=== PATIENT | female | born 1955 | race Caucasian/White ===

== ENCOUNTER 2018-06-21 16:52 | Inpatient (IN) | payer MEDICAID, OTHER ==
[~2018-06-21] VITALS: Ht 160 cm; Wt 90.9 kg
[2018-06-21 18:35] LABS: BASOPHILS % (AUTO) 0.7 % (0.0-2.0); EOSINOPHILS % (AUTO) 0.4 % (1.0-6.0); HEMATOCRIT 41.5 % (36-46); HEMOGLOBIN 14.7 g/dL (12.0-16.0); LYMPHOCYTES # (AUTO) 2.2 K/uL (1.0-4.8); LYMPHOCYTES % (AUTO) 21.6 % (22.0-44.0); MEAN CORPUSCULAR HEMOGLOBIN 33.6 pg (26.0-34.0); MEAN CORPUSCULAR HGB CONC 35.5 G/dL (31.0-37.0); MEAN CORPUSCULAR VOLUME 95 fL (80-100); MONOCYTES # (AUTO) 0.7 K/uL (0.1-1.0); MONOCYTES % (AUTO) 6.8 % (2.0-9.0); NEUTROPHILS # (AUTO) 7.2 K/uL (1.8-7.7); NEUTROPHILS % (AUTO) 70.5 % (40.0-70.0); PLATELET COUNT (AUTO) 222 K/uL (150-450); RED BLOOD CELL COUNT(AUTO) 4.38 MIL/uL (4.00-5.20); RED CELL DISTRIBUTION WIDTH 13.2 % (11.5-14.5)
[2018-06-21 18:50] LABS: ALANINE AMINOTRANSFERASE 43 U/L (12-78); ALBUMIN 3.7 g/dL (3.4-5.0); ALKALINE PHOSPHATASE 82 U/L (46-116); ANION GAP 13 mmol/L (8-16); ASPARTATE AMINOTRANSFERASE 33 U/L (15-37); BILIRUBIN,TOTAL 0.4 mg/dL (0.1-1.0); CALCIUM, TOTAL 9.5 mg/dL (8.8-10.5); CARBON DIOXIDE 23 mmol/L (22-29); CHLORIDE 104 mmol/L (98-107); CREATININE 0.79 mg/dL (0.60-1.30); GLOMERULAR FILTR. RATE CALC > 60 mL/min (>60); GLUCOSE,RANDOM 145 mg/dL (70-110); SODIUM SERUM 140 mmol/L (136-145); TOTAL PROTEIN, SERUM 7.5 g/dL (6.4-8.2); UREA NITROGEN, BLOOD 15 mg/dL (7-18)
[2018-06-21 18:51] LABS: POTASSIUM 2.6 mmol/L (3.5-5.1)
[2018-06-21] MEDS ORDERED: POTASSIUM CHLORIDE 20 MEQ ER TABLET PO ONE (19:00)
[2018-06-21] MEDS: POTASSIUM CHL 10 MEQ/WATER 50 ML IV SCH ×2 (19:59→21:14)
[2018-06-21] MEDS ORDERED: SODIUM CHLORIDE 0.9% 500 ML IV ONE (20:28)
[2018-06-21] MEDS ORDERED: METF-444 PO (21:32)
[2018-06-21] MEDS ORDERED: ASPI81TA87 PO (21:32)
[2018-06-21] MEDS ORDERED: PARO-37 PO (21:32)
[2018-06-21] MEDS ORDERED: ATOR20TA65 PO (21:32)
[2018-06-21] MEDS ORDERED: SIMV20TA6 PO (21:32)
[2018-06-22] MEDS ORDERED: POTASSIUM CHLORIDE 10% 40 MEQ/30 ML LIQUID UDCUP PO ONE ×2 (02:00→03:45)
[2018-06-22 02:07] LABS: APPEARANCE,URINE CLEAR (CLEAR); BILIRUBIN,URINE NEGATIVE (NEGATIVE); GLUCOSE, URINE (UA) NEGATIVE (NEGATIVE); KETONES,URINE NEGATIVE (NEGATIVE); LEUKOCYTE ESTERASE ,URINE NEGATIVE (NEGATIVE); NITRATE,URINE NEGATIVE (NEGATIVE); OCCULT BLOOD,URINE SMALL (NEGATIVE); PROTEIN,URINE NEGATIVE (NEGATIVE); UROBILINOGEN,URINE 0.2 mg/dL (<=1.0)
[2018-06-22 02:11] LABS: AMPHET/METH SCREEN,URINE NEGATIVE (NEGATIVE); BARBITURATE SCREEN, URINE NEGATIVE (NEGATIVE); BENZODIAZEPINES SCREEN,URINE NEGATIVE (NEGATIVE); CANNABINOID SCREEN,URINE POSITIVE (NEGATIVE); COCAINE SCREEN,URINE NEGATIVE (NEGATIVE); METHADONE SCREEN, URINE NEGATIVE (NEGATIVE); OPIATE SCREEN,URINE NEGATIVE (NEGATIVE)
[2018-06-22 02:23] LABS: PHENCYCLIDINE SCREEN,URINE NEGATIVE (NEGATIVE)
[2018-06-22] MEDS: POTASSIUM CHLORIDE 10% 40 MEQ/30 ML LIQUID UDCUP PO SCH ×2 (02:30→02:50)
[2018-06-22 02:32] LABS: BACTERIA,URINE Rare /HPF (None Seen); RBC,URINE 0-2 /HPF (0-2); SQUAMOUS EPITHELIAL CELL,UR Few /LPF (None Seen); WBC,URINE 0-2 /HPF (0-5)
[2018-06-22] MEDS ORDERED: SODIUM CHLORIDE 0.9% 1,000 ML IV ONE (06:30)
[2018-06-22 07:03] LABS: POTASSIUM 5.8 mmol/L (3.5-5.1)
[2018-06-22 07:04] LABS: CHOL/HDL RATIO 2.2 (3.9-5.7); FREE T4 (FREE THYROXINE) 1.27 ng/dL (0.76-1.46); THYROID STIMULATING HORMONE 1.72 uIU/mL (0.36-3.74)
[2018-06-22] MEDS ORDERED: LOPERAMIDE HCL 2 MG CAPSULE PO PRN (12:00)
[2018-06-22] MEDS ORDERED: GuaiFENesin/D-METHORPHAN [SUGAR-FREE] 200-20MG/10 ML SYRUP UDCUP PO PRN (12:00)
[2018-06-22] MEDS ORDERED: PROMETHAZINE HCL 25 MG TABLET PO PRN (12:00)
[2018-06-22] MEDS ORDERED: MAGNESIUM HYDROXIDE SUSPENSION 30 ML UDCUP PO PRN (12:00)
[2018-06-22] MEDS ORDERED: MAG HYDROX/AL HYDROX/SIMETH ES 30 ML SUSPENSION UDCUP PO PRN (12:00)
[2018-06-22] MEDS ORDERED: TUBERCULIN, PURIFIED PROTEIN DERIVATIVE 5 TU/0.1 ML SYG ID ONE (12:00)
[2018-06-22] MEDS ORDERED: HydrOXYzine PAMOATE 50 MG CAPSULE PO PRN (12:00)
[2018-06-22 12:13] LABS: GLUCOMETER DEV NAME(LOC) BV3S 2; GLUCOSE,POINT OF CARE 123 MG/DL (70-110)
[2018-06-22] MEDS ORDERED: DiphenhydrAMINE HCL 50 MG/ML VIAL ONE (12:25)
[2018-06-22] MEDS ORDERED: LORazepam 2 MG/ML VIAL ONE (12:25)
[2018-06-22] MEDS ORDERED: HALOPERIDOL LACTATE 5 MG/ML VIAL ONE (12:26)
[2018-06-22] MEDS ORDERED: LORazepam 2 MG/ML VIAL IM ONE (12:30)
[2018-06-22] MEDS ORDERED: HALOPERIDOL LACTATE 5 MG/ML VIAL IM ONE (12:30)
[2018-06-22] MEDS ORDERED: DiphenhydrAMINE HCL 50 MG/ML VIAL IM ONE (12:30)
[2018-06-22] MEDS ORDERED: PNEUMOCOCCAL VACCINE POLYVALENT 0.5 ML VIAL [PPSV23] IM ONE (12:30)
[2018-06-22] MEDS: ACETAMINOPHEN 325 MG TABLET PO PRN (12:31)
[2018-06-22 14:45] VITALS: BP 147/93
[2018-06-22 16:29] VITALS: BP 135/75
[2018-06-22] MEDS: THIAMINE HCL 100 MG TABLET PO SCH (16:45)
[2018-06-22] MEDS: OLANZapine 5 MG RAPDIS TABLET PO SCH (20:28)
[2018-06-23] MEDS: LORazepam 2 MG TABLET PO PRN (05:42)
[2018-06-23] MEDS: NALTREXONE HCL 50 MG TABLET PO SCH (09:36)
[2018-06-23] MEDS: MULTIVITAMINS WITH MINERALS, THERAPEUTIC TABLET PO SCH (09:36)
[2018-06-23] MEDS: FOLIC ACID 1 MG TABLET PO SCH (09:36)
[2018-06-23] MEDS: THIAMINE HCL 100 MG TABLET PO SCH ×2 (09:36→16:47)
[2018-06-23 16:53] VITALS: BP 139/78
[2018-06-23 19:13] LABS: GLUCOMETER DEV NAME(LOC) BV3S 2; GLUCOSE,POINT OF CARE 140 MG/DL (70-110)
[2018-06-23] MEDS: OLANZapine 5 MG RAPDIS TABLET PO SCH (20:50)
[2018-06-24] MEDS ORDERED: [UNRECOGNIZED DRUG - OTHER] PO SCH (07:00)
[2018-06-24] MEDS: MetFORMIN HCL 500 MG TABLET PO SCH (07:07)
[2018-06-24 07:08] LABS: GLUCOMETER DEV NAME(LOC) BV3S 2; GLUCOSE,POINT OF CARE 105 MG/DL (70-110)
[2018-06-24] MEDS: NALTREXONE HCL 50 MG TABLET PO SCH (08:46)
[2018-06-24] MEDS: ASPIRIN 81 MG CHEWABLE TABLET PO SCH (08:46)
[2018-06-24] MEDS: MULTIVITAMINS WITH MINERALS, THERAPEUTIC TABLET PO SCH (08:46)
[2018-06-24] MEDS: SIMVASTATIN 20 MG TABLET PO SCH (08:46)
[2018-06-24] MEDS: THIAMINE HCL 100 MG TABLET PO SCH ×2 (08:46→16:34)
[2018-06-24] MEDS: FOLIC ACID 1 MG TABLET PO SCH (08:46)
[2018-06-24] MEDS: LORazepam 2 MG TABLET PO PRN (08:47)
[2018-06-24 08:50] VITALS: BP 160/87
[2018-06-24] MEDS ORDERED: [UNRECOGNIZED DRUG - OTHER] PO SCH (09:00)
[2018-06-24] MEDS ORDERED: ATORVASTATIN CALCIUM 20 MG TABLET PO SCH (09:00)
[2018-06-24] MEDS ORDERED: MISC MED-CONVERTED FROM AMBULATORY (Aspirin 81 MG) PO SCH (09:00)
[2018-06-24] MEDS ORDERED: [UNRECOGNIZED DRUG - OTHER] PO SCH (09:00)
[2018-06-24 09:13] LABS: HEMOGLOBIN A1C 5.6 % (4.5-6.2)
[2018-06-24] MEDS: OLANZapine 5 MG RAPDIS TABLET PO PRN (09:17)
[2018-06-24 09:20] LABS: ANION GAP 10 mmol/L (8-16); CALCIUM, TOTAL 9.8 mg/dL (8.8-10.5); CARBON DIOXIDE 25 mmol/L (22-29); CHLORIDE 104 mmol/L (98-107); CHOL/HDL RATIO 2.3 (3.9-5.7); CHOLESTEROL 186 mg/dL (131-200); CREATININE 0.69 mg/dL (0.60-1.30); GLOMERULAR FILTR. RATE CALC > 60 mL/min (>60); GLUCOSE,RANDOM 97 mg/dL (70-110); HDL CHOLESTEROL 80 mg/dL (40-60); LDL CHOL (CALC.) 86 mg/dL (0-130); PHOSPHORUS 3.6 mg/dL (2.5-4.9); POTASSIUM 3.5 mmol/L (3.5-5.1); SODIUM SERUM 139 mmol/L (136-145); THYROID STIMULATING HORMONE 0.82 uIU/mL (0.36-3.74); TRIGLYCERIDES 101 mg/dL (15-150); UREA NITROGEN, BLOOD 18 mg/dL (7-18)
[2018-06-24 10:00] LABS: BASOPHILS % (AUTO) 0.8 % (0.0-2.0); EOSINOPHILS % (AUTO) 2.7 % (1.0-6.0); HEMATOCRIT 42.4 % (36-46); HEMOGLOBIN 14.9 g/dL (12.0-16.0); LYMPHOCYTES % (AUTO) 48.1 % (22.0-44.0); MEAN CORPUSCULAR HEMOGLOBIN 33.7 pg (26.0-34.0); MEAN CORPUSCULAR HGB CONC 35.2 G/dL (31.0-37.0); MEAN CORPUSCULAR VOLUME 96 fL (80-100); MONOCYTES # (AUTO) 0.6 K/uL (0.1-1.0); MONOCYTES % (AUTO) 7.5 % (2.0-9.0); NEUTROPHILS # (AUTO) 3.4 K/uL (1.8-7.7); NEUTROPHILS % (AUTO) 40.9 % (40.0-70.0); PLATELET COUNT (AUTO) 210 K/uL (150-450); RED BLOOD CELL COUNT(AUTO) 4.43 MIL/uL (4.00-5.20); RED CELL DISTRIBUTION WIDTH 13.5 % (11.5-14.5)
[2018-06-24 10:35] VITALS: BP 140/74
[2018-06-24] MEDS ORDERED: BENZOCAINE/MENTHOL LOZENGE MM PRN (19:15)
[2018-06-24] MEDS ORDERED: BACITRACIN 28.4 GM OINTMENT TP PRN (19:15)
[2018-06-24] MEDS ORDERED: IBUPROFEN 600 MG TABLET PO PRN (19:15)
[2018-06-24] MEDS ORDERED: ALBUTEROL SULFATE HFA 90 MCG/PUFF 8 GM INHALER IH PRN (19:15)
[2018-06-24] MEDS ORDERED: PETROLATUM,WHITE 71 GM JELLY TP PRN (19:15)
[2018-06-24] MEDS ORDERED: CloNIDine HCL 0.1 MG TABLET PO PRN (19:15)
[2018-06-24] MEDS ORDERED: ONDANSETRON HCL 4 MG TABLET PO PRN (19:15)
[2018-06-24 19:20] VITALS: BP 160/111
[2018-06-24] MEDS ORDERED: INSULIN LISPRO 100 UNITS/ML SQ PRN (19:30)
[2018-06-24] MEDS ORDERED: GLUCAGON,HUMAN RECOMBINANT 1 MG VIAL IM PRN (19:30)
[2018-06-24 20:30] VITALS: BP 140/85
[2018-06-24] MEDS: OLANZapine 10 MG RAPDIS TABLET PO SCH (20:30)
[2018-06-24 21:44] LABS: GLUCOMETER DEV NAME(LOC) BV3S 2; GLUCOSE,POINT OF CARE 116 MG/DL (70-110)
[2018-06-25] MEDS: ZOLPIDEM TARTRATE 10 MG TABLET PO PRN ×2 (00:39→21:35)
[2018-06-25] MEDS: LORazepam 2 MG TABLET PO PRN ×2 (00:39→09:31)
[2018-06-25 06:28] LABS: GLUCOMETER DEV NAME(LOC) BV3S 2; GLUCOSE,POINT OF CARE 97 MG/DL (70-110)
[2018-06-25] MEDS: MetFORMIN HCL 500 MG TABLET PO SCH (06:32)
[2018-06-25 08:36] VITALS: BP 137/67
[2018-06-25] MEDS: ASPIRIN 81 MG CHEWABLE TABLET PO SCH (09:30)
[2018-06-25] MEDS: MULTIVITAMINS WITH MINERALS, THERAPEUTIC TABLET PO SCH (09:31)
[2018-06-25] MEDS: OMEPRAZOLE 20 MG CAPSULE PO SCH (09:31)
[2018-06-25] MEDS: SIMVASTATIN 20 MG TABLET PO SCH (09:31)
[2018-06-25] MEDS: FOLIC ACID 1 MG TABLET PO SCH (09:31)
[2018-06-25] MEDS: NALTREXONE HCL 50 MG TABLET PO SCH (09:31)
[2018-06-25] MEDS: THIAMINE HCL 100 MG TABLET PO SCH ×2 (09:31→16:13)
[2018-06-25] MEDS: OLANZapine 5 MG RAPDIS TABLET PO PRN (09:31)
[2018-06-25 16:14] VITALS: BP 129/79
[2018-06-25 16:58] LABS: GLUCOMETER DEV NAME(LOC) BV3S 2; GLUCOSE,POINT OF CARE 111 MG/DL (70-110)
[2018-06-25 16:58] LABS: GLUCOMETER DEV NAME(LOC) BV3S 2; GLUCOSE,POINT OF CARE 113 MG/DL (70-110)
[2018-06-25 19:45] VITALS: BP 135/80
[2018-06-25] MEDS: ACETAMINOPHEN 325 MG TABLET PO PRN (19:46)
[2018-06-25] MEDS: OLANZapine 10 MG RAPDIS TABLET PO SCH (20:18)
[2018-06-25 21:38] LABS: GLUCOMETER DEV NAME(LOC) BV3S 2; GLUCOSE,POINT OF CARE 109 MG/DL (70-110)
[2018-06-26] MEDS: MetFORMIN HCL 500 MG TABLET PO SCH (06:52)
[2018-06-26 06:58] LABS: GLUCOMETER DEV NAME(LOC) BV3S 2; GLUCOSE,POINT OF CARE 93 MG/DL (70-110)
[2018-06-26 07:00] VITALS: BP 140/89
[2018-06-26 08:45] VITALS: BP 129/66
[2018-06-26] MEDS: NALTREXONE HCL 50 MG TABLET PO SCH (10:11)
[2018-06-26] MEDS: OMEPRAZOLE 20 MG CAPSULE PO SCH (10:11)
[2018-06-26] MEDS: ASPIRIN 81 MG CHEWABLE TABLET PO SCH (10:11)
[2018-06-26] MEDS: FOLIC ACID 1 MG TABLET PO SCH (10:11)
[2018-06-26] MEDS: LISINOPRIL 20 MG TABLET PO SCH (10:12)
[2018-06-26] MEDS: SIMVASTATIN 20 MG TABLET PO SCH (10:12)
[2018-06-26] MEDS: MULTIVITAMINS WITH MINERALS, THERAPEUTIC TABLET PO SCH (10:12)
[2018-06-26] MEDS: THIAMINE HCL 100 MG TABLET PO SCH ×2 (10:12→16:23)
[2018-06-26 16:38] LABS: GLUCOMETER DEV NAME(LOC) BV3S 2; GLUCOSE,POINT OF CARE 117 MG/DL (70-110)
[2018-06-26 16:38] LABS: GLUCOMETER DEV NAME(LOC) BV3S 2; GLUCOSE,POINT OF CARE 116 MG/DL (70-110)
[2018-06-26] MEDS: OLANZapine 10 MG RAPDIS TABLET PO SCH (21:06)
[2018-06-26 22:23] LABS: GLUCOMETER DEV NAME(LOC) BV3S 2; GLUCOSE,POINT OF CARE 104 MG/DL (70-110)
[2018-06-27 06:00] VITALS: BP 118/74
[2018-06-27 06:23] LABS: GLUCOMETER DEV NAME(LOC) BV3S 2; GLUCOSE,POINT OF CARE 88 MG/DL (70-110)
[2018-06-27] MEDS: MetFORMIN HCL 500 MG TABLET PO SCH (06:41)
[2018-06-27 07:08] VITALS: BP 132/85
[2018-06-27 08:25] VITALS: BP 140/77
[2018-06-27] MEDS: FOLIC ACID 1 MG TABLET PO SCH (08:25)
[2018-06-27] MEDS: MULTIVITAMINS WITH MINERALS, THERAPEUTIC TABLET PO SCH (08:25)
[2018-06-27] MEDS: ASPIRIN 81 MG CHEWABLE TABLET PO SCH (08:25)
[2018-06-27] MEDS: OLANZapine 5 MG RAPDIS TABLET PO PRN (08:25)
[2018-06-27] MEDS: OMEPRAZOLE 20 MG CAPSULE PO SCH (08:26)
[2018-06-27] MEDS: THIAMINE HCL 100 MG TABLET PO SCH ×2 (08:26→16:46)
[2018-06-27] MEDS: NALTREXONE HCL 50 MG TABLET PO SCH (08:26)
[2018-06-27] MEDS: LISINOPRIL 20 MG TABLET PO SCH (08:26)
[2018-06-27] MEDS: SIMVASTATIN 20 MG TABLET PO SCH (08:26)
[2018-06-27 12:04] LABS: GLUCOMETER DEV NAME(LOC) BV3S 2; GLUCOSE,POINT OF CARE 111 MG/DL (70-110)
[2018-06-27 17:13] LABS: GLUCOMETER DEV NAME(LOC) BV3S 2; GLUCOSE,POINT OF CARE 124 MG/DL (70-110)
[2018-06-27] MEDS: OLANZapine 10 MG RAPDIS TABLET PO SCH (20:19)
[2018-06-27 20:38] LABS: GLUCOMETER DEV NAME(LOC) BV3S 2; GLUCOSE,POINT OF CARE 100 MG/DL (70-110)
[2018-06-28 06:43] LABS: GLUCOMETER DEV NAME(LOC) BV3S 2; GLUCOSE,POINT OF CARE 85 MG/DL (70-110)
[2018-06-28] MEDS: MetFORMIN HCL 500 MG TABLET PO SCH (07:00)
[2018-06-28 07:01] VITALS: BP 125/75
[2018-06-28 08:48] VITALS: BP 133/73
[2018-06-28] MEDS: FOLIC ACID 1 MG TABLET PO SCH (09:00)
[2018-06-28] MEDS: THIAMINE HCL 100 MG TABLET PO SCH ×2 (09:00→16:26)
[2018-06-28] MEDS: NALTREXONE HCL 50 MG TABLET PO SCH (09:00)
[2018-06-28] MEDS: MULTIVITAMINS WITH MINERALS, THERAPEUTIC TABLET PO SCH (09:00)
[2018-06-28] MEDS: ASPIRIN 81 MG CHEWABLE TABLET PO SCH (09:00)
[2018-06-28] MEDS: SIMVASTATIN 20 MG TABLET PO SCH (09:00)
[2018-06-28] MEDS: LISINOPRIL 20 MG TABLET PO SCH (09:00)
[2018-06-28] MEDS: OMEPRAZOLE 20 MG CAPSULE PO SCH (09:00)
[2018-06-28 11:14] LABS: GLUCOMETER DEV NAME(LOC) BV3S 2; GLUCOSE,POINT OF CARE 105 MG/DL (70-110)
[2018-06-28 17:38] LABS: GLUCOMETER DEV NAME(LOC) BV3S 2; GLUCOSE,POINT OF CARE 73 MG/DL (70-110)
[2018-06-28] MEDS: OLANZapine 10 MG RAPDIS TABLET PO SCH (21:00)
[2018-06-28] MEDS: DIVALPROEX SODIUM 500 MG ER TABLET PO SCH (21:00)
[2018-06-29 01:38] LABS: GLUCOMETER DEV NAME(LOC) BV3S 2; GLUCOSE,POINT OF CARE 116 MG/DL (70-110)
[2018-06-29] MEDS: MetFORMIN HCL 500 MG TABLET PO SCH (06:41)
[2018-06-29 07:04] LABS: GLUCOMETER DEV NAME(LOC) BV3S 2; GLUCOSE,POINT OF CARE 92 MG/DL (70-110)
[2018-06-29 08:36] VITALS: BP 154/101
[2018-06-29] MEDS: SIMVASTATIN 20 MG TABLET PO SCH (09:00)
[2018-06-29] MEDS: LISINOPRIL 20 MG TABLET PO SCH ×2 (09:00→10:12)
[2018-06-29] MEDS: FLUoxetine HCL 20 MG CAPSULE PO SCH (09:00)
[2018-06-29] MEDS: ASPIRIN 81 MG CHEWABLE TABLET PO SCH (09:00)
[2018-06-29] MEDS: NALTREXONE HCL 50 MG TABLET PO SCH (09:00)
[2018-06-29] MEDS: FOLIC ACID 1 MG TABLET PO SCH (09:00)
[2018-06-29] MEDS: THIAMINE HCL 100 MG TABLET PO SCH ×2 (09:00→17:04)
[2018-06-29] MEDS: MULTIVITAMINS WITH MINERALS, THERAPEUTIC TABLET PO SCH (09:00)
[2018-06-29] MEDS: OMEPRAZOLE 20 MG CAPSULE PO SCH (09:00)
[2018-06-29] MEDS: LORazepam 2 MG TABLET PO PRN (10:12)
[2018-06-29 12:02] VITALS: BP 140/80
[2018-06-29 12:39] LABS: GLUCOMETER DEV NAME(LOC) BV3S 2; GLUCOSE,POINT OF CARE 133 MG/DL (70-110)
[2018-06-29] MEDS ORDERED: PALIPERIDONE 1.5 MG ER TABLET PO PRN (15:30)
[2018-06-29 16:39] VITALS: BP 142/85
[2018-06-29] MEDS ORDERED: PALIPERIDONE 3 MG ER TABLET PO SCH (21:00)
[2018-06-29] MEDS ORDERED: PALIPERIDONE PALMITATE 234 MG/1.5 ML SYRINGE IM ONE (21:00)
[2018-06-29] MEDS: DIVALPROEX SODIUM 500 MG ER TABLET PO SCH (21:26)
[2018-06-30 01:58] LABS: GLUCOMETER DEV NAME(LOC) BV3S 2; GLUCOSE,POINT OF CARE 118 MG/DL (70-110)
[2018-06-30] MEDS: MetFORMIN HCL 500 MG TABLET PO SCH (06:43)
[2018-06-30 07:23] LABS: GLUCOMETER DEV NAME(LOC) BV3S 2; GLUCOSE,POINT OF CARE 100 MG/DL (70-110)
[2018-06-30 08:40] VITALS: BP 158/99
[2018-06-30] MEDS: FLUoxetine HCL 20 MG CAPSULE PO SCH (09:06)
[2018-06-30] MEDS: OMEPRAZOLE 20 MG CAPSULE PO SCH (09:06)
[2018-06-30] MEDS: FOLIC ACID 1 MG TABLET PO SCH (09:07)
[2018-06-30] MEDS: SIMVASTATIN 20 MG TABLET PO SCH (09:07)
[2018-06-30] MEDS: MULTIVITAMINS WITH MINERALS, THERAPEUTIC TABLET PO SCH (09:07)
[2018-06-30] MEDS: LORazepam 2 MG TABLET PO PRN ×2 (09:08→16:57)
[2018-06-30] MEDS: LISINOPRIL 20 MG TABLET PO SCH (09:08)
[2018-06-30] MEDS: ASPIRIN 81 MG CHEWABLE TABLET PO SCH (09:08)
[2018-06-30] MEDS: NALTREXONE HCL 50 MG TABLET PO SCH (09:15)
[2018-06-30] MEDS: THIAMINE HCL 100 MG TABLET PO SCH ×2 (09:16→16:57)
[2018-06-30 12:23] LABS: GLUCOMETER DEV NAME(LOC) BV3S 2; GLUCOSE,POINT OF CARE 100 MG/DL (70-110)
[2018-06-30 13:02] VITALS: BP 125/73
[2018-06-30 16:31] VITALS: BP 106/66
[2018-06-30] MEDS ORDERED: PALI156D IM (17:56)
[2018-06-30] MEDS ORDERED: FLUO-191 PO (17:56)
[2018-06-30] MEDS ORDERED: NALT50TA PO (17:56)
[2018-06-30] MEDS ORDERED: DIVA500T52 PO (17:56)
[2018-06-30] MEDS: ZOLPIDEM TARTRATE 10 MG TABLET PO PRN (21:01)
[2018-06-30] MEDS: DIVALPROEX SODIUM 500 MG ER TABLET PO SCH (21:01)
[2018-07-01 00:09] LABS: GLUCOMETER DEV NAME(LOC) BV3S 2; GLUCOSE,POINT OF CARE 92 MG/DL (70-110)
[2018-07-01 00:09] LABS: GLUCOMETER DEV NAME(LOC) BV3S 2; GLUCOSE,POINT OF CARE 122 MG/DL (70-110)
[2018-07-01 06:23] LABS: GLUCOMETER DEV NAME(LOC) BV3S 2; GLUCOSE,POINT OF CARE 96 MG/DL (70-110)
[2018-07-01] MEDS: MetFORMIN HCL 500 MG TABLET PO SCH (06:57)
[2018-07-01 08:17] VITALS: BP 147/85
[2018-07-01] MEDS: FLUoxetine HCL 20 MG CAPSULE PO SCH (09:10)
[2018-07-01] MEDS: THIAMINE HCL 100 MG TABLET PO SCH (09:10)
[2018-07-01] MEDS: NALTREXONE HCL 50 MG TABLET PO SCH (09:10)
[2018-07-01] MEDS: ASPIRIN 81 MG CHEWABLE TABLET PO SCH (09:10)
[2018-07-01] MEDS: SIMVASTATIN 20 MG TABLET PO SCH (09:10)
[2018-07-01] MEDS: LISINOPRIL 20 MG TABLET PO SCH (09:11)
[2018-07-01] MEDS: OMEPRAZOLE 20 MG CAPSULE PO SCH (09:11)
[2018-07-01] MEDS: FOLIC ACID 1 MG TABLET PO SCH (09:11)
[2018-07-01] MEDS: MULTIVITAMINS WITH MINERALS, THERAPEUTIC TABLET PO SCH (09:11)
[2018-07-01] MEDS: LORazepam 2 MG TABLET PO PRN (09:12)
[2018-07-01] MEDS ORDERED: LISI-662 PO (10:58)
[2018-07-01] MEDS ORDERED: OMEP20 PO (10:58)
[2018-07-01] MEDS ORDERED: PALI156D IM (11:15)
[2018-07-01] MEDS ORDERED: DIVA500T52 PO (11:15)
[2018-07-01] MEDS ORDERED: FLUO-191 PO (11:15)
[2018-07-01] MEDS ORDERED: NALT50TA6 PO (11:15)
[2018-07-01 12:29] LABS: GLUCOMETER DEV NAME(LOC) BV3S 2; GLUCOSE,POINT OF CARE 102 MG/DL (70-110)
[2018-07-03] MEDS ORDERED: PALIPERIDONE PALMITATE 156 MG/ML SYRINGE IM ONE (09:00)
== END 2018-07-01 16:45 | disposition home or self-care (01) | DRG 750 ==
LOC: EMS 16:53 → B3A 22:32
PROVIDERS: ADMIT Psychiatry & Neurology Psychiatry; ATTEND Psychiatry & Neurology Psychiatry
DX: F25.9 Schizoaffective disorder, unspecified (principal); E11.9 Type 2 diabetes mellitus without complications; R45.851 Suicidal ideations; E66.9 Obesity, unspecified; E78.00 Pure hypercholesterolemia, unspecified; E87.6 Hypokalemia; F12.90 Cannabis use, unspecified, uncomplicated; F17.210 Nicotine dependence, cigarettes, uncomplicated; F94.0 Selective mutism; F32.9 Major depressive disorder, single episode, unspecified; F41.9 Anxiety disorder, unspecified; K59.00 Constipation, unspecified; Z68.35 Body mass index [BMI] 35.0-35.9, adult; Z79.82 Long term (current) use of aspirin; Z28.21 Immunization not carried out because of patient refusal; Z91.14 Patient's other noncompliance with medication regimen; Z91.19 Patient's noncompliance with other medical treatment and regimen; Z65.3 Problems related to other legal circumstances; Z59.0 Homelessness; Z79.84 Long term (current) use of oral hypoglycemic drugs; Z79.899 Other long term (current) drug therapy; Z56.0 Unemployment, unspecified
CPT/HCPCS: 82306; 83036; 83735; 84100; 84132; 84439; 84443; 90471; 99285; G0480; J1200; J1630; J2060; J3480; J7030; J7040